=== PATIENT | female | born 2000 | race Two or more races ===

== ENCOUNTER 2024-09-14 07:27 | Emergency (ER) | payer OTHER ==
[~2024-09-14] VITALS: Ht 160 cm; Wt 63.5 kg
[2024-09-14] MEDS ORDERED: LIDOCAINE HCL 1% 10ML VIAL PERCUT ONE (08:30)
[2024-09-14] MEDS ORDERED: KETOROLAC TROMETHAMINE 60 MG VIAL IM ONE ×2 (08:30→08:36)
[2024-09-14] MEDS ORDERED: TETANUS & DIPHTHERIA TOX,ADULT 0.5 ML VIAL IM ONE (08:30)
[2024-09-14] MEDS ORDERED: CEFTRIAXONE SODIUM 1,000 MG VIAL IM ONE (08:30)
[2024-09-14] MEDS ORDERED: FAMOTIDINE/PF 20 MG/2 ML VIAL ONE (08:37)
[2024-09-14] MEDS ORDERED: CEFTRIAXONE SODIUM 1,000 MG VIAL ONE (08:37)
[2024-09-14] MEDS ORDERED: PEPCID AC20 MG PO (08:57)
[2024-09-14] MEDS ORDERED: CEFUROXIME500 MG PO (08:57)
== END 2024-09-14 09:26 | disposition home or self-care (01) ==
LOC: ER 07:41
DX: S81.811A Laceration without foreign body, right lower leg, initial encounter (principal); W45.8XXA Other foreign body or object entering through skin, initial encounter; Y93.89 Activity, other specified; Y92.89 Other specified places as the place of occurrence of the external cause; Y99.9 Unspecified external cause status

== ENCOUNTER 2024-09-24 13:19 | Emergency (ER) | payer OTHER ==
[~2024-09-24] VITALS: Ht 167.6 cm; Wt 63.5 kg
[~2024-09-24 13:19] MED LIST: CEFUROXIME500 MG PO; PEPCID AC20 MG PO
== END 2024-09-24 16:14 | disposition home or self-care (01) ==
LOC: ER 13:23
DX: Z48.02 Encounter for removal of sutures (principal)

== ENCOUNTER 2024-09-29 13:48 | Emergency (ER) | payer OTHER ==
[~2024-09-29] VITALS: Ht 160 cm; Wt 63.5 kg
== END 2024-09-29 17:16 | disposition home or self-care (01) ==
LOC: ER 13:48
DX: Z48.02 Encounter for removal of sutures (principal)